=== PATIENT | male | born 1980 | race Caucasian/White ===

== ENCOUNTER → 2017-02-13 | Outpatient (CLI) | payer OTHER ==
[2017-02-13 11:58] LABS: BASO % 0.5 %; BASO ABS # 0.08 K/uL (0-0.2); COMPLETE YES; EOS % 1.3 %; HEMATOCRIT 45.7 % (42-52); IG% 0.3 %; LYMPH % 14.2 %; LYMPH ABS # 2.14 K/uL (1.2-3.4); MEAN CELL VOLUME 88.9 fL (80-100); MEAN CORPUSCULAR HEMOGLOBIN 29.6 pg (25-34); MEAN CORPUSCULAR HGB CONC 33.3 g/dl (32-36); MEAN PLATELET VOLUME 10.4 fL (7.4-10.4); MONO % 8.1 %; NEUT % 75.6 %; PLATELET COUNT 298 K/uL (130-400); RED BLOOD COUNT 5.14 M/uL (4.7-6.1); WHITE BLOOD COUNT 15.11 K/uL (4.8-10.8)
[2017-02-13 12:57] LABS: ALT/SGPT 42 U/L (12-78); BLOOD UREA NITROGEN 10 mg/dl (7-18); BUN/CREATININE RATIO 11.4 (10-20); CALCIUM 9.4 mg/dl (8.5-10.1); CARBON DIOXIDE 29 mmol/L (21-32); CHLORIDE 105 mmol/L (98-107); CHOLESTEROL 173 mg/dl (0-200); CREATININE 0.85 mg/dl (0.60-1.40); GLUCOSE 85 mg/dl (70-99); POTASSIUM 4.1 mmol/L (3.5-5.1); SODIUM 141 mmol/L (136-145)
[2017-02-13 13:08] LABS: ALB/GLOB RATIO 1.8 (0.9-2); ALKALINE PHOSPHATASE 88 U/L (45-117); AST/SGOT 14 U/L (15-37); CHOLESTEROL/HDL RATIO 5.2; HDL CHOLESTEROL 33 mg/dl; LDL CHOLESTEROL CALCULATED 116 mg/dl; THYROID STIMULATING HORMONE 0.982 uIu/ml (0.300-4.500); TRIGLYCERIDES 120 mg/dl (0-150); VERY LOW DENSITY LIPOPROT CALC 24 mg/dl
[2017-02-13 13:25] LABS: LYME DISEASE AB IGG NEG (NEG)
[2017-02-13 13:28] LABS: LYME DISEASE AB IGM NEG (NEG)
== END | disposition home or self-care (01) ==
LOC: C.LABPBG 09:49
PROVIDERS: ATTEND Neuromusculoskeletal Medicine & OMM
DX: Z00.00 Encounter for general adult medical examination without abnormal findings (principal); E78.5 Hyperlipidemia, unspecified; W57.XXXA Bitten or stung by nonvenomous insect and other nonvenomous arthropods, initial encounter

== ENCOUNTER → 2018-01-02 | Day surgery (SDC) | payer BC ==
[2017-12-23 14:01] VITALS: Ht 177.8 cm; Wt 84.1 kg
[~2018-01-02] VITALS: Ht 177.8 cm; Wt 84.1 kg
[~2018-01-02] MED LIST: ATROPINE SULFATE 0.1 MG/ML 5ML SYR IV PRN; BUPIVACAINE 0.5 % 5 MG/1 ML MPF 30ML VIAL ONE; BUPIVACAINE LIPOSOME 1/3% 266 MG/20 ML VIAL INFIL SCH; CLINDAMYCIN PHOS 150 MG/ML 2 ML VIAL IV SCH; DEXAMETHASONE SOD INJ 4 MG/ML VIAL ONE; EpHEDrine SULFATE INJ 50 MG/ML AMP IV PRN; FENO145T26 PO; FENTANYL CITRATE INJ 50 MCG/1 ML 2 ML VIAL IV PRN; FENTANYL CITRATE INJ 50 MCG/1 ML 2 ML VIAL ONE; GELATIN SPONGE SZ 100 ONE; IBUP-1050 PO; LACTATED RINGER'S 1000ML 1,000 ML IV SCH; LIDO2GEL9 PR; LIDOCAINE 2% JELLY 5 ML TUBE EXT ONE; LIDOCAINE HCL 2% 2 ML VIAL (20MG/ML) ONE; LIDOCAINE/EPINEPHRINE 1% 20 ML VIAL ONE; METR0.7510 RE; MIDAZOLAM HCL 1 MG/ML 2ML VIAL ONE; MoRPHine SULFATE 2 MG/ML CARP IV PRN; NURSING VERBAL MED ORDER ONE; ONDANSETRON INJ 2 MG/ML 2 ML VIAL IV PRN; ONDANSETRON INJ 2 MG/ML 2 ML VIAL ONE; OXYC-57 PO; OXYCODONE/ACETAMINOPHEN 5-325 TAB PO PRN; PROPOFOL IV EMULSION 10 MG/ML 20 ML VIAL IV ONE; PSEU60TA80 PO; SCOPOLAMINE 1.5 MG TDSY TD ONE
--- NOTE | 2018-01-02 07:48 | History & Physical Bridge - [place] ---
H&P Re-Evaluation Bridge Note: I have examined the patient, reviewed the History & Physical and in the interval since the performance of the History & Physical I have noted the following changes of clinical significance: No changes noted
--- NOTE | 2018-01-02 08:24 | Discharge Instructions ---
Discharge Instructions Date of Service Jan 02, 2018. Visit Reason for Visit: Fistula In Ano Discharge Discharge Diagnosis / Problem: fistulotomy, hemorrhoidectomy Discharge Goals Goal(s): Decrease discomfort Activity Recommendations Activity Limitations: as noted below Shower/Bathe: no limitations Driving or Machine Use: resume 3 days after discharge (if not taking Percocet) Anesthesia . Post Anesthesia Instructions: If you have had General Anesthesia or IV Sedation: * Do not drive today. * Resume driving when surgeon permits. * Do not make important decisions or sign legal documents today. * Call surgeon for: 1. Temperature elevations greater than 101 degrees F. 2. Uncontrollable pain. 3. Excessive bleeding. 4. Persistent nausea and vomiting. 5. Medication intolerance (nausea, vomiting or rash). * For nausea and vomiting use only clear liquids such as: tea, soda, bouillon until nausea subsides, then gradually increase diet as tolerated. * If you have any concerns or questions, call your surgeon's office. If physician is unavailable and it is an emergency, call 911 or go to the nearest emergency room. . Instructions / Follow-Up Instructions / Follow-Up Dr. Ramirez in approx 2 weeks as planned, call [phone] if you have any questions Apply metro gel and lidocaine jelly topical 2-3 times daily as needed for comfort Start taking Colace 100 mg 2 times daily, you can get this over the counter A long acting type of lidocaine was used that will last 2-3 days, you have have more pain when this begins to wear off Remove rectal packing tomorrow if it is still in place Diet Recommendations Recommended Home Diet: no limitations Pending Studies Studies pending at discharge: no Medical Emergencies . Who to Call and When: Medical Emergencies: If at any time you feel your situation is an emergency, please call 911 immediately. . Non-Emergent Contact Non-Emergency issues call your: Surgeon Call Non-Emergent contact if: you have a fever, temperature is above 101.5, your pain is not controlled, you have any medication questions . . "Provider Documentation" section prepared by Reagan Matos. .
--- NOTE | 2018-01-02 09:03 | [facility] Post Operative Brief Note ---
Immediate Operative Summary Operative Date Jan 02, 2018. Pre-Operative Diagnosis Fistula in ano Post-Operative Diagnosis Same as preop Procedure(s) Performed Anal Exam Under Anesthesia, Fistulotomy, Single Column Hemorrhoidectomy Surgeon Dr. Ramirez Chief Service Observer Surgeon(s) Reagan Matos PA-C Estimated Blood Loss 4 mL Findings See Below fistula in ano, mixed internal and external hemorrhoids Specimens A: Hemorrhoid Drains None Anesthesia Type General Complication(s) none Disposition Accompanied Pt To Recovery: no Disposition: Recovery Room / PACU
--- NOTE | 2018-01-02 09:17 | [facility] Operative Report ---
Operative Report Operative Date Jan 02, 2018. Pre-Operative Diagnosis Fistula in ano Post-Operative Diagnosis Same as preop Procedure(s) Performed Anal Exam Under Anesthesia, Fistulotomy, Single Column Hemorrhoidectomy Surgeon Dr. Ramirez Deputy Juvenile Officer Surgeon(s) Reagan Matos PA-C Estimated Blood Loss 4 mL Findings fistula in ano, mixed internal and external hemorrhoids Specimens A: Hemorrhoid Drains None Anesthesia Type General Complication(s) none Disposition no Recovery Room / PACU Indications 37-year-old male with suspected fistula in ano, plan for an rectal exam under anesthesia, fistulotomy versus seton placement, and other procedures as indicated. The risks of the procedure were discussed, all questions were answered, and the patient agreed to proceed with surgery as planned. Description of Procedure The patient was properly identified, consented, and taken to the operating room where he was placed in the supine position. General endotracheal anesthesia was induced. The patient was then placed in high lithotomy position. SCDs and a safety belt were placed. The patient's anus and buttocks were prepped and draped in the standard sterile fashion. Surgical timeout was performed and all parties were in agreement that this was the correct patient and procedure to be performed and we continued as planned. The external anal exam revealed mild to moderate external hemorrhoids, largest being in the left lateral column. There was also some skin tags and a possible sentinel pile. Digital rectal exam revealed no significant abnormality. A anal speculum was inserted and the exam revealed grade 1-2 internal hemorrhoids , again worse in the left lateral column. Local anesthetic in the form of 1% Lidocaine with Epinephrine was injected around the anus. At the location of the sentinel pile the area was then explored with a lacrimal probe, and a small external opening of the fistula in ano was discovered. The internal opening was then discovered with the use of hydrogen peroxide, and the anal probe was inserted. The fistula tract was very superficial going through a minimal amount of sphincter muscle. The skin and muscle overlying the fistula was opened. The area was curetted and the tissue was fulgurated with Bovie electrocautery. The area was again explored and there was no evidence of other fistula. The left lateral column hemorrhoid was fairly prominent and the patient had some moderate symptoms. At this point we decided to perform a single column mixed internal and external hemorrhoidectomy. Harmonic Scalpel was used to excise the hemorrhoid which was passed off the table as specimen. Hemostasis was achieved in the open wound with electrocautery. The mucosa and skin was then closed with 0 Vicryl suture with a running, locking stitch followed by running simple suture. A repeat endoscopy was performed and there was no evidence of continued bleeding or other significant abnormality. Exparel was injected around the anus. ProctoFoam was inserted. Gauze and an ABD pad were placed over the anus, and disposable underwear was placed on the patient. Anesthesia was ceased, the patient was transferred to the PACU for recovery in stable condition. All sponge, instrument, needle counts were correct at the conclusion of the procedure. The patient tolerated the procedure well. The physician's geological survey field assistant was present and scrubbed for the entirety of the case. He was a central and positioning the patient, prepping and draping, retraction and exposure, closure, and placement of the dressing. I attest to the content of the Intraoperative Record and any orders documented therein. Any exceptions are noted below.
--- NOTE | 2018-01-02 10:07 | Anesthesia Progress Nt - [facility] ---
Anesthesia Post Op Note Date & Time Jan 02, 2018 at 10:06 Vital Signs Pain Intensity: 0 Vital Signs Past 12 Hours Date Time Temp Pulse Resp B/P (MAP) Pulse Ox O2 Delivery O2 Flow Rate FiO2 01/02/18 09:58 36.4 66 20 110/68 (82) 98 Room Air 01/02/18 09:45 76 23 01/02/18 09:45 77 23 96 01/02/18 09:41 121/74 01/02/18 09:40 36.4 75 20 123/72 97 Room Air 01/02/18 09:40 81 14 99 01/02/18 09:40 81 14 01/02/18 09:36 119/76 01/02/18 09:35 79 17 01/02/18 09:35 79 17 98 01/02/18 09:31 118/76 01/02/18 09:30 76 12 96 01/02/18 09:30 78 12 01/02/18 09:26 106/63 01/02/18 09:25 68 15 96 01/02/18 09:25 68 15 01/02/18 09:21 119/65 01/02/18 09:20 79 20 98 01/02/18 09:20 82 20 01/02/18 09:16 102/60 01/02/18 09:15 64 16 01/02/18 09:15 64 16 99 01/02/18 09:11 105/60 01/02/18 09:10 64 16 01/02/18 09:10 63 16 99 01/02/18 09:05 101/55 01/02/18 09:05 36.3 65 10 101/55 98 Mask 6 01/02/18 06:55 36.6 77 16 134/73 (93) 97 Room Air Notes Mental Status: alert / awake / arousable, participated in evaluation Pt Amnestic to Procedure: Yes Nausea / Vomiting: adequately controlled Pain: adequately controlled Airway Patency, RR, SpO2: stable & adequate BP & HR: stable & adequate Hydration State: stable & adequate Anesthetic Complications: no major complications apparent
[2018-01-02 10:16] VITALS: BP 134/84; PULSE 66; O2SAT 99
== END | disposition home or self-care (01) ==
LOC: X.SURG 06:44
PROVIDERS: ATTEND Surgery
DX: K60.3 Anal fistula (principal); K64.8 Other hemorrhoids; K64.4 Residual hemorrhoidal skin tags; E78.5 Hyperlipidemia, unspecified; Z87.891 Personal history of nicotine dependence; Z83.49 Family history of other endocrine, nutritional and metabolic diseases; Z82.49 Family history of ischemic heart disease and other diseases of the circulatory system